=== PATIENT | male | born 1965 | race African-American/Black ===

== ENCOUNTER → 2020-06-01 | Outpatient (CLI) | payer OTHER ==
--- NOTE | 2020-06-01 17:19 | Diagnostic Imaging Report ---
Indication: Cough Technique: One view of the chest Comparison: none Findings: Some scarring is seen in the upper lungs bilaterally. There is questionably a 3.6 cm opacity in the right upper lobe, although this could be a confluence of scarring and rib shadows. No definite acute infiltrates, effusions, or congestion. The heart size is normal. Embolization coils are seen in the right upper quadrant and left upper quadrant of the abdomen. Impression: Questionable 3.6 cm right upper lobe opacity, probably confluent of various shadows but mass not excludable. Consider CT for further evaluation Evidence of bilateral upper lung scarring Evidence of prior upper abdominal vascular embolization procedure
== END | disposition home or self-care (01) ==
LOC: RAD 14:50
DX: Z01.818 Encounter for other preprocedural examination (principal); R05 Cough; Z01.812 Encounter for preprocedural laboratory examination
CPT/HCPCS: 71046